=== PATIENT | female | born 1980 | race Caucasian/White ===

== ENCOUNTER 2017-12-31 14:40 | Emergency (ER) | payer OTHER ==
[~2017-12-31] VITALS: Ht 160 cm; Wt 65.3 kg
[~2017-12-31 14:40] MED LIST: BREAST PUMP MC; ENDOCET 5-3251 EACH PO; FERROUS SULFAT325 MG PO; IBUPROFEN800 MG PO; PRENATAL TABLE1 EAC3 PO; REMERON15 M2 PO; SUBOXONE 4 MG-1 EACH SL; SUBUTEX SL; VYVANSE60 MG PO; WELLBUTRIN XL150 MG PO; ZOLOFT100 MG PO
[2017-12-31 17:10] LABS: APPEARANCE CLEAR ((CLEAR)); BILIRUBIN NEGATIVE; BLOOD NEGATIVE; COLOR YELLOW ((YELLOW)); GLUCOSE (STRIP) NEGATIVE; KETONES NEGATIVE; LEUKOCYTES NEGATIVE; NITRITE NEGATIVE; PROTEIN (STRIP) 30; SPECIFIC GRAVITY 1.033 (1.000-1.030); UCUL ADDED? NO; UROBILINOGEN 0.2 MG/DL (0.2-1.0)
[2017-12-31 17:14] LABS: HEMATOCRIT 35.8 % (36.0-46.0); HEMOGLOBIN 11.6 G/DL (11.9-15.5); MCH 27.8 PG (29.0-34.0); MCHC 32.4 G/DL (30.0-36.0); MCV 85.6 FL (83-99); PLATELET COUNT 214 K/uL (156-360); RBC DIS.WIDTH-CV 14.2 % (11.8-14.6); RBC DIS.WIDTH-SD 44.3 % (39-53); RED BLOOD COUNT 4.18 M/uL (3.80-5.20)
[2017-12-31] MEDS ORDERED: ATIVAN2 MG PO (17:20)
[2017-12-31 17:21] LABS: AMPHETAMINE PRESUMPTIVE POSITIVE (500 ng/mL); BARBITURATES NEGATIVE (200 ng/mL); BENZODIAZEPINES PRESUMPTIVE POSITIVE (150 ng/mL); BUPRENORPHINE NEGATIVE (10 ng/mL); COCAINE NEGATIVE (150 ng/mL); METHADONE PRESUMPTIVE POSITIVE (200 ng/mL); METHAMPHETAMINE NEGATIVE (500 ng/mL); OPIATES (MORPHINE) PRESUMPTIVE POSITIVE (100 ng/mL); OXYCODONE PRESUMPTIVE POSITIVE (100 ng/mL); PHENCYCLIDINE NEGATIVE (25 ng/mL); PROPOXYPHENE NEGATIVE (300 ng/mL); THC CANNABINOIDS PRESUMPTIVE POSITIVE (50 ng/mL); TRICYCLIC ANTIDEPRESSANTS NEGATIVE (300 ng/mL)
[2017-12-31 17:25] LABS: CHLORIDE 115 mEq/L (99-109); POTASSIUM 4.5 mEq/L (3.7-5.4); SODIUM 146 mEq/L (136-147)
[2017-12-31 17:27] LABS: GLUCOSE 65 mg/dL (70-99)
[2017-12-31 17:30] LABS: SERUM ETHYL ALCOHOL < 10 mg/dL
[2017-12-31 17:31] LABS: CREATININE 0.7 mg/dL (0.6-1.3); GFR ESTIMATE (CALCULATED) > 59 mL/min/
[2017-12-31 17:32] LABS: UREA NITROGEN (BUN) 20 mg/dL (9-23)
[2017-12-31 17:59] LABS: BENZODIAZEPINES, URINE SCREEN POSITIVE (200 ng/mL)
[2017-12-31 18:01] VITALS: BP 143/88
== END 2017-12-31 18:19 | disposition home or self-care (01) ==
LOC: EME 14:40
PROVIDERS: Emergency Medicine
DX: F13.10 Sedative, hypnotic or anxiolytic abuse, uncomplicated (principal); F41.9 Anxiety disorder, unspecified; F17.200 Nicotine dependence, unspecified, uncomplicated; F11.10 Opioid abuse, uncomplicated
CPT/HCPCS: 80048; 81003; 81025; 84999; 85027; 90839; 99281; 99285; G0480